=== PATIENT | female | born 1960 | race African-American/Black ===

== ENCOUNTER 2016-11-18 13:38 | Emergency (ER) | payer SELFPAY ==
[2016-11-18 13:42] VITALS: BP 173/100
== END 2016-11-18 14:30 | disposition left against medical advice (07) ==
LOC: ED 13:38
DX: Z53.21 Procedure and treatment not carried out due to patient leaving prior to being seen by health care provider (principal)

== ENCOUNTER 2017-04-15 19:05 | Emergency (ER) | payer SELFPAY ==
[~2017-04-15] VITALS: Ht 165.1 cm; Wt 72.6 kg
[2017-04-15 19:14] VITALS: Ht 165.1 cm; Wt 72.6 kg
[2017-04-15 20:26] VITALS: BP 180/96
== END 2017-04-15 20:26 | disposition home or self-care (01) ==
LOC: ED 19:05
DX: R42 Dizziness and giddiness (principal); I10 Essential (primary) hypertension; Z88.8 Allergy status to other drugs, medicaments and biological substances
CPT/HCPCS: 82962